=== PATIENT | male | born 1980 | race African-American/Black ===

== ENCOUNTER 2025-06-30 12:00 | Emergency (ER) | payer OTHER ==
[~2025-06-30] VITALS: Ht 172.7 cm; Wt 75.0 kg
[2025-06-30 12:19] VITALS: TEMP 97.7
[2025-06-30 12:47] LABS: PLATELET COUNT (AUTO) 269 K/uL (150-450); RED BLOOD CELL COUNT(AUTO) 4.30 MIL/uL (4.50-5.90); RED CELL DISTRIBUTION WIDTH 15.4 % (11.5-14.5); WHITE BLOOD COUNT (AUTO) 6.2 K/uL (4.5-11.0)
[2025-06-30 13:06] LABS: CALCIUM, TOTAL 9.4 mg/dL (8.8-10.5); CREATININE 1.16 mg/dL (0.60-1.30); GLOMERULAR FILTR. RATE CALC > 60 mL/min (>60); GLUCOSE,RANDOM 98 mg/dL (70-110); SODIUM SERUM 139 mmol/L (136-145); UREA NITROGEN, BLOOD 14 mg/dL (7-18)
[2025-06-30 14:06] VITALS: BP 126/74; PULSE 66; RESP 16; O2SAT 99
[2025-06-30] MEDS: HYDROGEN PEROXIDE 3% 118 ML SOLUTION TP ONE (15:20)
[2025-06-30] MEDS ORDERED: BACI28.410 TP (15:31)
[2025-06-30] MEDS ORDERED: IBUP-1554 PO (15:31)
[2025-06-30] MEDS ORDERED: ACET-66 PO (15:31)
[2025-06-30] MEDS ORDERED: CEPH-558 PO (15:31)
== END 2025-06-30 16:06 | disposition home or self-care (01) ==
LOC: EMS 12:10
DX: L03.115 Cellulitis of right lower limb (principal); F12.90 Cannabis use, unspecified, uncomplicated
CPT/HCPCS: 80048; 85025; 99283